=== PATIENT | female | born 1985 | race African-American/Black ===

== ENCOUNTER 2022-11-18 14:27 | Emergency (ER) | payer OTHER ==
[~2022-11-18] VITALS: Ht 152.4 cm; Wt 78.0 kg
[2022-11-18 14:38] VITALS: BP_SYST 144
--- NOTE | 2022-11-18 15:30 | NUR ---
DR ORTEZ IN [facility] FOR EXAM
[2022-11-18] MEDS ORDERED: NITR-85 PO (15:37)
[2022-11-18] MEDS ORDERED: PHEN-890 PO (15:37)
[2022-11-18 15:40] LABS: BILIRUBIN,URINE NEGATIVE (NEGATIVE); BLOOD, URINE 3+ (NEGATIVE); COLOR,URINE YELLOW (YELLOW); GLUCOSE,URINE NEGATIVE (NEGATIVE); KETONES,URINE NEGATIVE (NEGATIVE); LEUKOCYTE ESTERASE ,URINE 3+ (NEGATIVE); NITRITE, URINE NEGATIVE (NEGATIVE); PH,URINE 6.5 (5.0-8.0); PROTEIN URINE 1+ (NEGATIVE); UROBILINOGEN,URINE 0.2 (0.2-1.0)
[2022-11-18 15:47] LABS: CLARITY/URINE HAZY (CLEAR)
[2022-11-18 15:48] LABS: BACTERIA,URINE FEW /HPF (None Seen); MUCUS,URINE None Seen /LPF (None Seen); RBC,URINE 0-3 /HPF (0-3); WBC,URINE 50-80 /HPF (0-3)
[2022-11-18 16:19] VITALS: BP_SYST 144
--- NOTE | 2022-11-18 16:19 | NUR ---
Patient given written and verbal discharge instructions and verbalizes understanding. ER MD discussed with patient the results and treatment provided. Patient in stable condition. ID arm band removed. Rx of MACROBID, PYRIDIUM given. Patient educated on pain management and to follow up with PMD. Pain Scale . Opportunity for questions provided and answered. Medication side effect fact sheet provided.
== END 2022-11-18 16:19 | disposition home or self-care (01) ==
LOC: SED 14:27
DX: N39.0 Urinary tract infection, site not specified (principal); R30.0 Dysuria; Z79.899 Other long term (current) drug therapy
CPT/HCPCS: 81000; 87086; 99283